=== PATIENT | female | born 1985 | race Caucasian/White ===

== ENCOUNTER 2018-09-19 09:48 | Inpatient (IN) | payer OTHER ==
[2018-09-19] MEDS ORDERED: METHYLERGONOVINE 0.2 MG INJ IM (11:30)
[2018-09-19] MEDS ORDERED: LIDOCAINE 1% (MPF) 30 ML INJ INJ (11:30)
[2018-09-19] MEDS ORDERED: OXYTOCIN 30 UNITS/LR 500 ML IV ×2 (11:30)
[2018-09-19] MEDS ORDERED: CARBOPROST 250 MCG INJ IM (11:30)
[2018-09-19] MEDS ORDERED: MISOPROSTOL 200 MCG TAB PR (11:30)
[2018-09-19] MEDS ORDERED: BUTORPHANOL 2 MG INJ IV (11:30)
[2018-09-19] MEDS: LACTATED RINGER'S 1,000 ML IV ×4 (11:33→19:17)
[2018-09-19 12:00] LABS: ADD MAN DIFF? NO
[2018-09-19 12:09] LABS: WHITE BLOOD COUNT 14.3 10^3/ul (4.8-10.8)
[2018-09-19 12:09] LABS: BASOPHIL # 0.1 10^3/ul (0.0-0.1); BASOPHILS % 0.3 % (0.0-2.0); EOSINOPHILS % 0.1 % (0.0-7.0); HEMATOCRIT 35.1 % (37.0-47.0); HEMOGLOBIN 12.1 g/dl (12.0-16.0); LYMPHOCYTES # 1.4 10^3/ul (0.8-2.9); LYMPHOCYTES % 9.6 % (15.0-51.0); MEAN CORPUSCULAR HEMOGLOBIN 33.9 pg (29.0-33.0); MEAN CORPUSCULAR HGB CONC 34.5 g/dl (32.0-37.0); MEAN CORPUSCULAR VOLUME 98.3 fl (82.0-101.0); MEAN PLATELET VOLUME 11.3 fl (7.4-10.4); MONOCYTE # 1.1 10^3/ul (0.3-0.9); MONOCYTES % 7.7 % (0.0-11.0); NEUTROPHIL # 11.7 10^3/ul (1.6-7.5); NEUTROPHILS % 81.8 % (39.0-77.0); PLATELET COUNT 228 10^3/UL (140-415); RED BLOOD COUNT 3.57 10^6/ul (4.20-5.40); RED CELL DISTRIBUTION WIDTH 11.9 % (11.5-14.5)
[2018-09-19] MEDS ORDERED: FENTAnyl 2MCG/ML-ROPIV 0.2% 100 ML (12:13)
[2018-09-19] MEDS: AMPICILLIN 2 GM/NS (PMX) 100 ML IV (12:17)
[2018-09-19 12:25] LABS: INR 0.91; PROTIME 12.4 Sec (11.9-14.9)
[2018-09-19 12:26] LABS: PARTIAL THROMBOPLASTIN TIME 29.4 Sec (23.0-35.0)
[2018-09-19] MEDS ORDERED: FENTAnyl 2MCG/ML-ROPIV 0.2% 100 ML BAG EPI (12:30)
[2018-09-19] MEDS ORDERED: NALOXONE (0.4 MG/ML) INJ IV (12:30)
[2018-09-19 15:21] LABS: RAPID PLASMA REAGIN NONREACTIVE (NR)
[2018-09-19] MEDS: AMPICILLIN 1 GM/NS (PMX) 50 ML IV ×3 (16:30→22:30)
[2018-09-19] MEDS ORDERED: CITRIC ACID/NA CITRATE 30 ML CUP (20:54)
[2018-09-19] MEDS ORDERED: ONDANSETRON 4 MG INJ ×2 (20:54→21:16)
[2018-09-19] MEDS ORDERED: AMPICILLIN 2 GM/NS (PMX) 100 ML (21:02)
[2018-09-19] MEDS ORDERED: OXYTOCIN 10 UNIT INJ (21:07)
[2018-09-19] MEDS ORDERED: ROPIVACAINE 0.5 % 30 ML VIAL (21:07)
[2018-09-19] MEDS ORDERED: OXYTOCIN 30 UNITS/LR 500 ML BAG IV (21:07)
[2018-09-19] MEDS ORDERED: METOCLOPRAMIDE 10 MG INJ (21:16)
[2018-09-19] MEDS ORDERED: KETOROLAC 30 MG INJ (21:16)
[2018-09-19] MEDS ORDERED: DEXAMETHASONE 4 MG/ML 1 ML INJ (21:16)
[2018-09-19] MEDS ORDERED: MEPERIDINE 100 MG INJ (21:27)
[2018-09-19] MEDS ORDERED: morphine SULFATE/PF (10 MG/10 ML) INJ (21:44)
[2018-09-19] MEDS: GENTAMICIN 120 MG/NS (PMX) 100 ML IVPB (22:07)
[2018-09-19] MEDS: ONDANSETRON 4 MG INJ IV (22:09)
[2018-09-19] MEDS: OXYTOCIN 30 UNITS/LR 500 ML IV (22:09)
[2018-09-19] MEDS: CITRIC ACID/NA CITRATE 30 ML CUP PO (22:10)
[2018-09-19 22:11] LABS: CBV Base Excess -17.9 mmol/L; CBV COHb 0.7 %; CBV Oxygen Sat 67.8 mmHG; CBV Total Hemglobin 16.1 g/dl; Cord Blood Venous pO2 40.5 mmHG (15.0-45.0); Fraction OxyHgb Cord Venous 66.9 %; MODE AMBU BAG; MetHgb Cord Venous 0.7 %; Sample Type Blood venous; Site CORD
[2018-09-19 22:12] LABS: AADO2 Cord Arterial 615.8 mmHg; Arterial Cord Blood pCO2 69.7 mmHG (25-50); CBA Base Excess -18.8 mmol/L; CBA COHb 0.7 %; CBA Oxygen Sat 36.3 mmHG; CBA Total Hemglobin 16.1 g/dl; Cord Blood Arterial pO2 27.5 mmHG (15.0-45.0); Fraction OxyHgb Cord Arterial 35.8 %; MODE AMBU BAG; MetHgb Cord Arterial 0.8 %; Site CORD
[2018-09-20] MEDS: OXYTOCIN 30 UNITS/LR 500 ML IV ×2 (00:12→04:20)
[2018-09-20] MEDS ORDERED: NACL 0.9% 3 ML SYG IV (00:30)
[2018-09-20] MEDS ORDERED: NA PHOSPHATE/BIPHOS 133 ML ENEMA PR (00:30)
[2018-09-20] MEDS ORDERED: METHYLERGONOVINE 0.2 MG INJ IM (00:30)
[2018-09-20] MEDS ORDERED: METHYLERGONOVINE 0.2 MG TAB PO (00:30)
[2018-09-20] MEDS ORDERED: CARBOPROST 250 MCG INJ IM (00:30)
[2018-09-20] MEDS ORDERED: LANOLIN HPA 1 PKT TOP (00:30)
[2018-09-20] MEDS ORDERED: HYDROCODONE/APAP (5/325) TAB PO ×2 (00:30→02:00)
[2018-09-20] MEDS ORDERED: OXYTOCIN 30 UNITS/LR 500 ML IV (00:30)
[2018-09-20] MEDS ORDERED: MISOPROSTOL 200 MCG TAB PR (00:30)
[2018-09-20 00:36] LABS: ADD MAN DIFF? NO
[2018-09-20 00:38] LABS: ABNORMAL IP MESSAGE 1; BASOPHIL # 0.1 10^3/ul (0.0-0.1); BASOPHILS % 0.4 % (0.0-2.0); HEMATOCRIT 32.6 % (37.0-47.0); HEMOGLOBIN 11.2 g/dl (12.0-16.0); LYMPHOCYTES # 0.9 10^3/ul (0.8-2.9); LYMPHOCYTES % 3.5 % (15.0-51.0); MEAN CORPUSCULAR HEMOGLOBIN 34.1 pg (29.0-33.0); MEAN CORPUSCULAR HGB CONC 34.4 g/dl (32.0-37.0); MEAN CORPUSCULAR VOLUME 99.4 fl (82.0-101.0); MEAN PLATELET VOLUME 11.6 fl (7.4-10.4); MONOCYTE # 1.5 10^3/ul (0.3-0.9); MONOCYTES % 5.7 % (0.0-11.0); NEUTROPHILS % 89.5 % (39.0-77.0); PLATELET COUNT 216 10^3/UL (140-415); RED BLOOD COUNT 3.28 10^6/ul (4.20-5.40); RED CELL DISTRIBUTION WIDTH 12.2 % (11.5-14.5)
[2018-09-20 00:38] LABS: WHITE BLOOD COUNT 25.7 10^3/ul (4.8-10.8)
[2018-09-20 00:41] LABS: POSITIVE DIFF @See below
[2018-09-20 00:56] LABS: ANION GAP 6 (5-13); Estimated GFR > 60 mL/min (>60)
[2018-09-20 00:57] LABS: BLOOD UREA NITROGEN 14 mg/dl (7-20); CALCIUM 8.2 mg/dl (8.4-10.2); CARBON DIOXIDE 19 mmol/L (21-31); CHLORIDE 112 mmol/L (97-110); CREATININE 0.98 mg/dl (0.44-1.00); GLUCOSE 84 mg/dl (70-220); SODIUM 137 mmol/L (135-144)
[2018-09-20] MEDS: LACTATED RINGER'S 1,000 ML IV ×3 (00:59→21:47)
[2018-09-20] MEDS: GENTAMICIN 290 MG in SOD CHLORIDE 0.9% 100 ML IVPB (01:44)
[2018-09-20] MEDS ORDERED: morphine 2 MG INJ IV ×2 (02:00)
[2018-09-20] MEDS ORDERED: NALBUPHINE HCL (10 MG/1 ML) INJ IV (02:00)
[2018-09-20] MEDS ORDERED: NALOXONE (0.4 MG/ML) INJ IV (02:00)
[2018-09-20] MEDS ORDERED: ONDANSETRON 4 MG INJ IV (02:00)
[2018-09-20] MEDS ORDERED: DIPHENHYDRAMINE 50 MG INJ IV (02:00)
[2018-09-20] MEDS ORDERED: HYDROmorphONE 0.5 MG/0.5 ML SYG IV ×2 (02:00)
[2018-09-20] MEDS ORDERED: ACETAMINOPHEN 500 MG TAB PO (02:00)
[2018-09-20] MEDS ORDERED: IBUPROFEN 600 MG TAB PO (06:00)
[2018-09-20] MEDS: CLINDAMYCIN 900 MG/D5W (PMX) 50 ML IVPB ×3 (06:25→21:47)
[2018-09-20] MEDS ORDERED: CLINDAMYCIN 900 MG INJ IM (09:00)
[2018-09-20] MEDS: KETOROLAC 30 MG INJ IV ×2 (15:05→20:26)
[2018-09-21] MEDS: IBUPROFEN 600 MG TAB PO ×6 (02:09→23:38)
[2018-09-21] MEDS: GENTAMICIN 80 MG/NS (PMX) 50 ML IVPB ×3 (02:09→19:37)
[2018-09-21] MEDS: CLINDAMYCIN 900 MG/D5W (PMX) 50 ML IVPB ×3 (05:56→22:12)
[2018-09-21 07:48] LABS: ADD MAN DIFF? NO
[2018-09-21 07:52] LABS: WHITE BLOOD COUNT 17.6 10^3/ul (4.8-10.8)
[2018-09-21 07:52] LABS: BASOPHIL # 0.1 10^3/ul (0.0-0.1); BASOPHILS % 0.3 % (0.0-2.0); EOSINOPHILS # 0.1 10^3/ul (0.0-0.5); EOSINOPHILS % 0.6 % (0.0-7.0); HEMATOCRIT 26.4 % (37.0-47.0); HEMOGLOBIN 8.9 g/dl (12.0-16.0); LYMPHOCYTES # 1.7 10^3/ul (0.8-2.9); LYMPHOCYTES % 9.7 % (15.0-51.0); MEAN CORPUSCULAR HGB CONC 33.7 g/dl (32.0-37.0); MEAN CORPUSCULAR VOLUME 100.8 fl (82.0-101.0); MEAN PLATELET VOLUME 10.5 fl (7.4-10.4); MONOCYTE # 1.2 10^3/ul (0.3-0.9); MONOCYTES % 6.9 % (0.0-11.0); NEUTROPHIL # 14.4 10^3/ul (1.6-7.5); NEUTROPHILS % 81.9 % (39.0-77.0); PLATELET COUNT 187 10^3/UL (140-415); RED BLOOD COUNT 2.62 10^6/ul (4.20-5.40); RED CELL DISTRIBUTION WIDTH 12.4 % (11.5-14.5)
[2018-09-21 08:15] LABS: ANION GAP 4 (5-13); BLOOD UREA NITROGEN 12 mg/dl (7-20); CALCIUM 7.8 mg/dl (8.4-10.2); CARBON DIOXIDE 25 mmol/L (21-31); CHLORIDE 105 mmol/L (97-110); CREATININE 0.72 mg/dl (0.44-1.00); Estimated GFR > 60 mL/min (>60); GLUCOSE 78 mg/dl (70-220); SODIUM 134 mmol/L (135-144)
[2018-09-21] MEDS: LACTATED RINGER'S 1,000 ML IV ×2 (11:14→19:14)
[2018-09-22] MEDS: GENTAMICIN 80 MG/NS (PMX) 50 ML IVPB ×2 (02:04→10:10)
[2018-09-22] MEDS: CLINDAMYCIN 900 MG/D5W (PMX) 50 ML IVPB (05:51)
[2018-09-22] MEDS: IBUPROFEN 600 MG TAB PO ×2 (05:51→13:44)
[2018-09-23] MEDS ORDERED: MEASLES,MUMPS,RUBELLA VACCINE INJ SC* (09:00)
[2018-09-23] MEDS ORDERED: DIPHTH/TET/ACEL PERTUSS (ADULT) 0.5 ML VIAL IM* (09:00)
== END 2018-09-22 15:05 | disposition home or self-care (01) | DRG 786 ==
LOC: OBT 09:48 → MS1 09-20 00:46 → L-D 09:49 → PP1 09-21 13:42 → OBT 10:14 → L-D 10:16
PROVIDERS: Obstetrics & Gynecology
PROC: 10D00Z1 Extraction of Products of Conception, Low, Open Approach (ICD-10-PCS; principal; 2018-09-20)
DX: O62.0 Primary inadequate contractions (principal); O41.1230 Chorioamnionitis, third trimester, not applicable or unspecified; O76 Abnormality in fetal heart rate and rhythm complicating labor and delivery; Z3A.39 39 weeks gestation of pregnancy; Z37.0 Single live birth
CPT/HCPCS: 36415; 36600; 80048; 82803; 85025; 85610; 85730; 86592; 86900; 86901; 87040-91; 88307